=== PATIENT | male | born 1960 | race Caucasian/White ===

== ENCOUNTER → 2020-01-04 | Outpatient (CLI) | payer OTHER | END | disposition home or self-care (01) | LOC: Rad HDHVI 16:04 | PROVIDERS: ATTEND Internal Medicine Cardiovascular Disease | DX: I08.8 Other rheumatic multiple valve diseases (principal); I10 Essential (primary) hypertension; R07.89 Other chest pain; R00.2 Palpitations | CPT/HCPCS: 93306 ==

== ENCOUNTER → 2020-01-12 | Outpatient (CLI) | payer OTHER ==
[~2020-01-12] VITALS: Ht 177.8 cm; Wt 88.0 kg
== END | disposition home or self-care (01) ==
LOC: Rad HDHVI 08:22
PROVIDERS: ATTEND Internal Medicine Cardiovascular Disease
DX: I10 Essential (primary) hypertension (principal); R07.89 Other chest pain; E78.00 Pure hypercholesterolemia, unspecified; E78.5 Hyperlipidemia, unspecified; R00.2 Palpitations; Z13.9 Encounter for screening, unspecified; Z13.0 Encounter for screening for diseases of the blood and blood-forming organs and certain disorders involving the immune mechanism; Z82.49 Family history of ischemic heart disease and other diseases of the circulatory system
CPT/HCPCS: 78452; 93017; 96374; A9500

== ENCOUNTER → 2022-05-06 | Outpatient (CLI) | payer OTHER | END | disposition home or self-care (01) | LOC: Rad HDHVI 14:56 | PROVIDERS: ATTEND Internal Medicine | DX: I11.9 Hypertensive heart disease without heart failure (principal); I35.8 Other nonrheumatic aortic valve disorders; R07.89 Other chest pain | CPT/HCPCS: 93306 ==

== ENCOUNTER 2023-02-10 08:03 | Day surgery (SDC) | payer OTHER ==
[2023-02-04 14:52] LABS: Basophils # (auto) 0.1 10 ^3/uL (0-0.2); Basophils % (auto) 0.6 % (0.0-2.0); Eosinophils # (auto) 0.6 10 ^3/uL (0-0.8); Eosinophils % (auto) 6.9 % (0.0-7.0); Hematocrit 42.9 % (41.0-53.0); Hemoglobin 14.8 g/dL (13.5-17.5); Lymphocytes # (auto) 1.8 10 ^3/uL (0.4-5.4); Mean Corpuscular Hgb Conc. 34.5 g/dL (32.0-36.0); Mean Corpuscular Volume 84.1 fL (80.0-100.0); Monocytes # (auto) 0.8 10 ^3/uL (0-1.3); Monocytes % (auto) 9.3 % (0.0-12.0); Neutrophils # (auto) 5.3 10 ^3/uL (1.6-8.6); Neutrophils % (auto) 62.2 % (37.0-80.0); Red Blood Cells 5.11 10^6/uL (4.5-5.90); Red Cell Distribution Width 12.8 % (11.8-14.3); White Blood Cell 8.5 10^3/uL (4.4-10.8)
[2023-02-04 14:55] LABS: Urine Bacteria FEW /hpf (None Seen); Urine Blood Negative /uL (Negative); Urine Clarity Clear (Clear); Urine Color Yellow (Yellow); Urine Protein, UAD Negative (Negative); Urine Specific Gravity 1.019 (1.001-1.035); Urine Sperm PRESENT /hpf (None Seen); Urine Urobilinogen Normal (Negative); Urine WBC 2 /hpf (0 - 3)
[2023-02-04 15:07] LABS: INR 1.01 (0.9-1.15); Partial Thromboplastin Time 29.1 SEC (24.5-34.5); Prothrombin Time 10.6 sec (9.3-11.8)
[2023-02-04 15:44] LABS: Alanine Aminotransferase 23 U/L (7-40); Albumin 4.7 g/dL (3.2-4.8); Alkaline Phosphatase 108 U/L (46-116); Anion Gap 5 (5-15); Aspartate Aminotransferase 14 U/L (13-40); BUN/Creatinine Ratio 15.8 (10.0-20.0); Blood Urea Nitrogen 18 mg/dL (9-23); Calcium 9.6 mg/dL (8.7-10.4); Carbon Dioxide 29 mmol/L (20-30); Chloride 105 mmol/L (98-107); Glucose 91 mg/dL (74-106); Potassium 4.3 mmol/L (3.5-5.1); Sodium 139 mmol/L (136-145)
[2023-02-04 15:45] LABS: Bilirubin, Total 0.6 mg/dL (0.2-1.0); Total Protein 7.5 g/dL (5.7-8.2)
[~2023-02-10] VITALS: Ht 177.8 cm; Wt 88.5 kg
[~2023-02-10 08:03] MED LIST: AMLO1TAB22 PO; ASPI81CH59 PO; ATOR20TA50 PO; GEMF-66 PO; LOSA25TA15 PO; MULT-1018 OR
[2023-02-10] MEDS ORDERED: mitoMYcin 40 MG in STERILE WATER 60 ML IS ONE (08:30)
[2023-02-10] MEDS ORDERED: mitoMYcin 40 MG in STERILE WATER 80 ML IS ONE (08:45)
[2023-02-10] MEDS ORDERED: CIPROFLOXACIN 400MG/200ML 200 ML IV ONE (09:55)
[2023-02-10] MEDS ORDERED: MIDAZOLAM HCL 2MG/2ML 2ml VIAL (1mg/ml) ONE (13:32)
[2023-02-10] MEDS ORDERED: fentaNYL CITRATE 5 ML ONE (13:32)
[2023-02-10 14:35] VITALS: TEMP 97.4; O2SAT 99
[2023-02-10] MEDS ORDERED: NEOSTIGMINE 1 MG/ML INJ (10mg/10ML VIAL) ONE (14:37)
[2023-02-10] MEDS ORDERED: GLYCOPYRROLATE 0.2 MG/ML 1ML VIAL ONE ×2 (14:37)
[2023-02-10] MEDS ORDERED: ROCURONIUM 10MG/ML 10ML VIAL IV ONE (14:37)
[2023-02-10] MEDS ORDERED: ONDANSETRON HCL 4 MG/2 ML VIAL ONE (14:37)
[2023-02-10] MEDS ORDERED: LIDOCAINE 2% (LOCAL ANESTH.) PF 5ml SDV ONE (14:37)
[2023-02-10] MEDS ORDERED: PROPOFOL 10 MG/ML 20 ML IV ONE (14:37)
[2023-02-10] MEDS ORDERED: HYDROmorphone HCL 2 MG/ML VL/or syr IV PRN ×2 (15:00)
[2023-02-10] MEDS ORDERED: ONDANSETRON HCL 4 MG/2 ML VIAL IV PRN (15:00)
[2023-02-10 15:48] VITALS: BP 157/87; PULSE 70; RESP 19; O2SAT 97
== END 2023-02-10 15:50 | disposition home or self-care (01) ==
LOC: SUR 08:03
PROVIDERS: ATTEND Urology
DX: D09.0 Carcinoma in situ of bladder (principal); R35.0 Frequency of micturition
CPT/HCPCS: 36415; 51720; 52234; 80053; 81001; 85025; 85610; 85730; 87086; 88307; 88342; J0744; J2001; J2250; J2405; J2704; J3010; J9280

== ENCOUNTER → 2023-02-16 | Outpatient (CLI) | payer OTHER ==
[~2023-02-16] VITALS: Ht 177.8 cm; Wt 86.2 kg
== END | disposition home or self-care (01) ==
LOC: Rad HDHVI 14:00
PROVIDERS: ATTEND Internal Medicine Cardiovascular Disease
DX: Z01.810 Encounter for preprocedural cardiovascular examination (principal); I10 Essential (primary) hypertension; E78.00 Pure hypercholesterolemia, unspecified; Z82.49 Family history of ischemic heart disease and other diseases of the circulatory system; Z79.82 Long term (current) use of aspirin; Z79.899 Other long term (current) drug therapy
CPT/HCPCS: 78452; 93017; 96374; A9500

== ENCOUNTER → 2024-05-06 | Outpatient (CLI) | payer OTHER ==
[~2024-05-06] MED LIST changes: +LOSA-533 PO; -LOSA25TA15 PO
[2024-05-06 10:55] VITALS: BP 153/82; PULSE 75; RESP 18; O2SAT 98
[2024-05-06] MEDS: MEROPENEM 1GM IVPB 50 ML IV ONE (11:09)
[2024-05-06] MEDS: MEROPENEM 1GM IVPB 100 ML IV ONE (11:13)
[2024-05-06] MEDS: IOHEXOL 350 MG/ML 100ML IJ ONE (11:13)
--- NOTE | 2024-05-06 11:59 | DVH ---
Exam: CT CT AB PEL WITH IV CON ONLY History: UTI TECHNIQUE: A digital label drier image was obtained. During the uneventful, intravenous administration of c ontrast material, multislice data acquisition was obtained through the abdomen and pelvis. The data s et was subsequently reconstructed into axial images. Images were reviewed on a work station using a c ombination of axial and multiplanar using a variety of window levels and settings. 100 cc of Omnipaqu e 300 contrast was injected intravenously. All CT scans at this medical facility are performed using dose modulation techniques as appropriate t o a performed exam including the following:Automated exposure control was utilized; adjustment of the MA and/or KV according to patient size; and use of iterative reconstruction technique. Radiation Dose Information: CT Dose: CTDI volume is 8.7 mGy. Dose-length product is 473 mGy*cm Comparison: None FINDINGS: There is a 4.5 cm simple appearing right renal cyst. There is no evidence of nephrolithiasis or hydr onephrosis. Theliver, gallbladder, pancreas, adrenal glands, and spleen appear within normal limits. There is no evidence of abdominal lymphadenopathy. There is no free fluid or free air. The stomach grossly appears unremarkable. The small and large bowel loops demonstrate normal caliber. The abdominal aorta and IVC appear within normal limits. There is mild prostatomegaly. There are radiation beads within the prostate gland. The bladder is po james filled and demonstrates wall thickening which May relate to chronic cystitis versus outlet obstr uction. There is no evidence of a pelvic mass or lymphadenopathy. There is no free fluid collection. Lung bases are clear. There is no acute osseous abnormality. IMPRESSION: 1. Mild prostatomegaly. 2. Poorly filled bladder demonstrates wall thickening which May relate to chronic cystitis versus out let obstruction. 3. 4.5 cm simple appearing right renal cyst.. HS:Y
[2024-05-06 13:26] VITALS: BP 117/75; PULSE 65; RESP 16; O2SAT 98
== END | disposition home or self-care (01) ==
LOC: Rad HDHVI 10:42
PROVIDERS: ATTEND Internal Medicine Cardiovascular Disease
DX: N39.0 Urinary tract infection, site not specified (principal); N28.1 Cyst of kidney, acquired; N40.0 Benign prostatic hyperplasia without lower urinary tract symptoms; I10 Essential (primary) hypertension; E78.00 Pure hypercholesterolemia, unspecified; Z79.82 Long term (current) use of aspirin; Z79.899 Other long term (current) drug therapy; Z85.51 Personal history of malignant neoplasm of bladder
CPT/HCPCS: 74177; 96365; 96366; G0463; J2185; Q9967